=== PATIENT | female | born 1950 | race Caucasian/White ===

== ENCOUNTER → 2017-02-22 | Outpatient (CLI) | payer MEDICARE, BC ==
[2014-07-05 19:40] VITALS: BP 150/81
[~2017-02-22] MED LIST: LEVO137T3 PO; LOSA50TA2 PO; RABE20TA5 PO
--- NOTE | 2017-02-22 10:56 | RAD ---
EXAM: MAMMO CHILO SCREENING BILATERAL. HISTORY: Screening. COMPARISON: 02/21/2016 and 02/18/2015. FINDINGS: 2-D and 3-D tomosynthesis mammograms were obtained of both breasts in the CC and MLO projections. Computer-aided detection (CAD) was utilized. The breast parenchyma is primarily fatty (tissue density A). No dominant suspicious mass, suspicious microcalcifications, or architectural distortion is identified. IMPRESSION: No mammographic evidence of malignancy. BI-RADS CATEGORY: 1 NEGATIVE RECOMMENDED FOLLOW-UP: 12M 12 MONTH FOLLOW-UP PQRS compliance statement: Patient information was entered into a reminder system with a target due date for the next mammogram. Mammography is a sensitive method for finding small breast cancers, but it does not detect them all and is not a substitute for careful clinical examination. A negative mammogram does not negate a clinically suspicious finding and should not result in delay in biopsying a clinically suspicious abnormality. "Our facility is accredited by the [employer] Mammography Program."
== END | disposition home or self-care (01) ==
LOC: MAMMO 09:56
PROVIDERS: ATTEND Family Medicine
DX: Z12.31 Encounter for screening mammogram for malignant neoplasm of breast (principal)
CPT/HCPCS: 77063; G0202; 77067

== ENCOUNTER → 2019-10-19 | Outpatient (CLI) | payer MEDICARE, BC ==
[2014-07-05 19:40] VITALS: BP 150/81
[~2019-10-19] MED LIST changes: -LOSA50TA2 PO; +LOSA50TA86 PO; +RABE20TA18 PO; -RABE20TA5 PO
== END | disposition home or self-care (01) ==
LOC: LAB 08:17
PROVIDERS: ATTEND Specialist
DX: R82.71 Bacteriuria (principal)
CPT/HCPCS: 87086

== ENCOUNTER → 2019-10-27 | Outpatient (CLI) | payer MEDICARE, BC ==
[2014-07-05 19:40] VITALS: BP 150/81
== END | disposition home or self-care (01) ==
LOC: LAB 11:46
PROVIDERS: ATTEND Specialist
DX: R82.71 Bacteriuria (principal)
CPT/HCPCS: 87086

== ENCOUNTER → 2020-03-04 | Outpatient (CLI) | payer MEDICARE, BC ==
[2014-07-05 19:40] VITALS: BP 150/81
== END | disposition home or self-care (01) ==
LOC: LAB 07:45
PROVIDERS: ATTEND Specialist
DX: R82.71 Bacteriuria (principal)
CPT/HCPCS: 87086

== ENCOUNTER → 2020-03-14 | Outpatient (CLI) | payer MEDICARE, BC ==
[2014-07-05 19:40] VITALS: BP 150/81
== END ==
LOC: LAB 08:24
PROVIDERS: ATTEND Specialist
DX: N30.20 Other chronic cystitis without hematuria (principal)
CPT/HCPCS: 87086

== ENCOUNTER → 2020-03-18 | Outpatient (CLI) | payer MEDICARE, BC ==
[2014-07-05 19:40] VITALS: BP 150/81
--- NOTE | 2020-03-18 09:07 | RAD ---
CHEST PA LATERAL INDICATION: Preoperative, knee surgery. COMPARISON STUDY: 01/31/2010. FINDINGS: Lungs: Normal lung volume. No pulmonary mass or consolidation. The tracheobronchial tree and hilar structures are normal. Pleura: No pleural effusion or pneumothorax. Heart and Mediastinum: The cardiomediastinal silhouette is normal. Tortuosity of the thoracic aorta. Bones and Soft Tissues: Right convex thoracic curvature. Multilevel degenerative changes of the spine. IMPRESSION: No acute cardiopulmonary process. Electronically signed by: Pranav Mabry MD (03/18/2020 9:04 AM) [id number]
--- NOTE | 2020-03-18 09:09 | EKG ---
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
[2020-03-18 09:19] LABS: BASO # 0.1 x10^3/uL (0.0-0.2); BASO % 2 % (0-3); EOS # 0.4 x10^3/uL (0.0-0.7); EOS % 7 % (0-3); HEMATOCRIT 42.6 % (36.0-47.0); HEMOGLOBIN 14.4 g/dL (12.0-15.5); LYMPH # 1.6 x10^3/uL (1.0-4.8); LYMPH % 29 % (24-48); MEAN CORPUSCULAR HEMOGLOBIN 31 pg (25-35); MEAN CORPUSCULAR HGB CONC 34 g/dL (31-37); MEAN CORPUSCULAR VOLUME 90 fL (79-100); MONO # 0.5 x10^3/uL (0.0-1.1); MONO % 8 % (0-9); NEUT # 3.1 x10^3uL (1.8-7.7); NEUT % 54 % (31-73); PLATELET COUNT 262 x10^3/uL (140-400); RED BLOOD COUNT 4.72 x10^6/uL (3.50-5.40); RED CELL DISTRIBUTION WIDTH 12.9 % (11.5-14.5); WHITE BLOOD COUNT 5.8 x10^3/uL (4.0-11.0)
[2020-03-18 09:20] LABS: CALCIUM 9.5 mg/dL (8.5-10.1); CREATININE 0.7 mg/dL (0.6-1.0); GFR 82.7; POTASSIUM 3.7 mmol/L (3.5-5.1)
--- NOTE | 2020-03-20 16:14 | EKG ---
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
== END | disposition home or self-care (01) ==
LOC: RAD 08:18
PROVIDERS: ATTEND Physician Assistant
DX: Z01.818 Encounter for other preprocedural examination (principal); M47.814 Spondylosis without myelopathy or radiculopathy, thoracic region
CPT/HCPCS: 36415; 71046; 80048; 85025; 87641; 93005

== ENCOUNTER 2020-08-06 14:18 | Emergency (ER) | payer MEDICARE, BC ==
[~2020-08-06] VITALS: Ht 162.6 cm; Wt 98.2 kg
[2020-08-06] MEDS ORDERED: ACETAMINOPHEN 500 MG TABLET PO ONE (14:45)
[2020-08-06] MEDS ORDERED: IV RINGERS SOLUTION,LACTATED 1,000 ML IV SCH (14:45)
--- NOTE | 2020-08-06 14:53 | PHYS DOC ---
Past History Past Medical History: Arthritis, GERD, Hypertension, Hypothyroid Past Surgical History: Tonsillectomy, Tubal ligation, Other Alcohol Use: None Drug Use: None General Adult EDM: Chief Complaint: FATIGUE HPI: HPI: Patient is a 70-year-old female coming for multiple complaints including headache, urinary frequency, body aches, chills, chest "soreness" and, shortness of breath. She has had some nausea but no vomiting, denies diarrhea. Took ibuprofen this morning with improvement. Has past medical history of GERD, hypertension, hypothyroid. She has been compliant on medications Review of Systems: Review of Systems: Constitutional: Fever and chills, body aches Eyes: Denies change in visual acuity HENT: Denies nasal congestion or sore throat Respiratory: Shortness of breath Cardiovascular: Chest soreness denies peripheral extremity edema GI: Nausea without vomiting, denies diarrhea or abdominal pain : Denies dysuria but has had urinary frequency Musculoskeletal: Denies back pain or joint pain Integument: Denies rash Neurologic: Frontal headache without focal weakness or sensory changes Endocrine: Denies polyuria or polydipsia Lymphatic: Denies swollen glands Psychiatric: Denies depression or anxiety Heart Score: Risk Factors: Risk Factors: DM, Current or recent (<one month) smoker, HTN, HLP, family history of CAD, obesity. Risk Scores: Score 0 - 3: 2.5% MACE over next 6 weeks - Discharge Home Score 4 - 6: 20.3% MACE over next 6 weeks - Admit for Clinical Observation Score 7 - 10: 72.7% MACE over next 6 weeks - Early Invasive Strategies Allergies: Allergies: Allergies Coded Allergies Type Severity Reaction Last Updated Verified Sulfa (Sulfonamide Antibiotics) Allergy Severe Swelling 07/05/14 No Physical Exam: PE: Constitutional: Well developed, well nourished, no acute distress, non-toxic appearance. [] HENT: Normocephalic, atraumatic, bilateral external ears normal, oropharynx moist, no oral exudates, nose normal. [] Eyes: PERRLA, EOMI, conjunctiva normal, no discharge. [] Neck: Normal range of motion, no tenderness, supple, no stridor. [] Cardiovascular:Heart rate regular rhythm, no murmur [] Lungs & Thorax: Bilateral breath sounds clear to auscultation [] Abdomen: Bowel sounds normal, soft, no tenderness, no masses, no pulsatile masses. [] Skin: Warm, dry, no erythema, no rash. [] Back: No tenderness, no CVA tenderness. [] Extremities: No tenderness, no cyanosis, no clubbing, ROM intact, no edema. [] Neurologic: Alert and oriented X 3, normal motor function, normal sensory function, no focal deficits noted. [] Psychologic: Affect normal, judgement normal, mood normal. [] EKG: EKG: Sinus tachycardia, heart rate 102, no ectopy. [] Radiology/Procedures: Radiology/Procedures: CT ANGIO CHEST W ABD PEL W/ Indication: Hypoxia, frequent urination, nausea Technique: Postcontrast CT imaging was performed of the chest, abdomen, pelvis, multiplanar reconstruction images to include MIP reconstruction images are submitted. No oral contrast was given. One or more of the following individualized dose reduction techniques were utilized for this examination: 1. Automated exposure control 2. Adjustment of the mA and/or kV according to patient size 3. Use of iterative reconstruction technique. Comparison: August 01, 2009 CHEST: Findings: There is some motion degradation. No convincing pulmonary embolism is identified. There is prominent coronary calcification. There is somewhat ectatic tubular ascending thoracic aorta about 3.7 cm. No dissection flap is identified of the thoracic aorta. No significantly enlarged nodes identified of the chest. There is no pleural or pericardial fluid, pneumothorax, or significant infiltrate. There is [id number] reverse S-shaped curvature of the mid to superior thoracic spine. There is a small hiatal hernia. There is degenerative change of the glenohumeral articulations bilaterally. IMPRESSION: 1. No convincing pulmonary embolism is identified there is no significant infiltrate or pleural fluid. 2. There is coronary calcification. 3. There is reverse S shaped scoliotic curvature of the thoracic spine. 4. There is small hiatal hernia. Abdomen pelvis FINDINGS: There is very mild left hydronephrosis, 0.5 to 0.6 cm calculus in the proximal left ureter just beyond the ureteropelvic junction. There is mild enhancement of the delaney of the proximal left ureter as well as the left renal collecting system. Both kidneys enhance. There is no right hydronephrosis. There is a small focus of gas in the urinary bladder lumen. Accurate evaluation of bowel is limited without oral contrast. Bowel is not dilated. There is no free fluid or free air. There is mild colonic diverticulosis greatest of the sigmoid colon, no significant adjacent inflammatory change. Normal caliber appendix is visualized without adjacent inflammatory change. There is mild scattered plaque of the abdominal aorta and iliac arteries. Abdominal aortic caliber is within normal limits. Celiac and superior mesenteric arteries are patent. There is some calcified plaque near the orifice of the right renal artery without significant focal stenosis. No focal abnormality is identified of the spleen. There is a small accessory spleen. No focal abnormality is identified of the liver or the pancreas. There is elongation of the right lobe of the liver. There is no significant adrenal nodularity. Gallbladder is present without obvious intraluminal abnormality by CT. There is very mild grade 1 anterior spondylolisthesis of L4-5 and L5-S1, multilevel lumbar facet degenerative change. There is variable multilevel lumbar degenerative disc disease. There is mild reverse S shaped curvature of the lumbar spine. There is suspected moderate to severe spinal stenosis at L4-5. IMPRESSION: 1.There is mild left hydroureteronephrosis due to 0.5 to 0.6 cm calculus in the proximal left ureter just beyond the ureteropelvic junction. There is some enhancement of the delaney of the proximal left ureter as well as left left renal collecting system as may be seen with inflammatory change/ureteritis. 2. There is mild colonic diverticulosis. 3. Small focus of gas in the urinary bladder lumen could be due to recent instrumentation if corresponding history. If there has not been recent catheterization, infection with gas-forming organism is not excluded. Sequela of fistula seems less likely. 4. There is likely moderate to severe spinal stenosis at L4-5. [] Course & Med Decision Making: Course & Med Decision Making Pertinent Labs and Imaging studies reviewed. (See chart for details) Discussed with family extensively mine, will consult patient. Pending bed at end of shift. [] Dragon Disclaimer: Dragon Disclaimer: This electronic medical record was generated, in whole or in part, using a voice recognition dictation system. Departure Departure: Impression: Primary Impression: Renal calculus, left Additional Impression: Pyelonephritis Disposition: 05 TRANSFER OTHER Condition: STABLE Referrals: CONCHIS TURNER MD (PCP) MYESHA RODRIGUEZ MD Aug 06, 2020 14:53
--- NOTE | 2020-08-06 15:18 | RAD ---
Examination: PORTABLE CHEST 1V History: chest pain Comparison/Correlation: 03/18/2020 two-view chest x-ray exam Findings: Portable upright frontal view of the chest was obtained. Heart size is borderline. No acute pulmonary inflation. No pneumothorax. Pulmonary vasculature is within upper limits of normal. No focal infiltrates. No definite effusion. Spurring of the left humeral head is present. Impression: Borderline pulmonary vascular congestion is present but may be artifactual related to limited pulmonary inflation. No focal infiltrate. Electronically signed by: Nakul White MD (08/06/2020 3:15 PM) [id number]
[2020-08-06 15:55] LABS: BASO # 0.1 x10^3/uL (0.0-0.2); BASO % 1 % (0-3); EOS % 0 % (0-3); HEMATOCRIT 36.3 % (36.0-47.0); LYMPH # 0.5 x10^3/uL (1.0-4.8); LYMPH % 4 % (24-48); MEAN CORPUSCULAR HEMOGLOBIN 29 pg (25-35); MEAN CORPUSCULAR HGB CONC 33 g/dL (31-37); MEAN CORPUSCULAR VOLUME 89 fL (79-100); MONO # 0.6 x10^3/uL (0.0-1.1); MONO % 5 % (0-9); NEUT # 10.5 x10^3uL (1.8-7.7); NEUT % 90 % (31-73); PLATELET COUNT 248 x10^3/uL (140-400); RED BLOOD COUNT 4.09 x10^6/uL (3.50-5.40); RED CELL DISTRIBUTION WIDTH 13.9 % (11.5-14.5); WHITE BLOOD COUNT 11.6 x10^3/uL (4.0-11.0)
[2020-08-06 16:05] LABS: CALCIUM 9.7 mg/dL (8.5-10.1); GFR 54.8; POTASSIUM 3.3 mmol/L (3.5-5.1)
[2020-08-06 16:19] LABS: BILIRUBIN,URINE NEG (NEG); CLARITY,URINE HAZY; COLOR,URINE YELLOW; GLUCOSE,URINE NEG (NEG); NITRITE,URINE NEG (NEG); UROBILINOGEN,URINE 0.2 mg/dL (0.2 mg/dL)
[2020-08-06 16:20] LABS: BACTERIA,URINE 0 /HPF (0-FEW); WBC,URINE >40 /HPF (0-4)
[2020-08-06 16:22] LABS: INFLUENZA A PATIENT NEGATIVE (NEGATIVE); INFLUENZA B PATIENT NEGATIVE (NEGATIVE)
[2020-08-06] MEDS ORDERED: IOHEXOL 350 MG/ML 100 ML VIAL. IV ONE (17:00)
[2020-08-06] MEDS ORDERED: IV NORMAL SALINE 50ML 50 ML ONE (17:21)
[2020-08-06] MEDS ORDERED: cefTRIAXone SODIUM 1 GM VIAL ONE (17:21)
[2020-08-06] MEDS ORDERED: KETOROLAC 15 MG/ML VIAL. IVP ONE (17:45)
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
[2020-08-06 21:32] VITALS: BP 142/84
[2020-08-06] MEDS ORDERED: cloNIDine HCL 0.1 MG TABLET PO ONE (23:30)
--- NOTE | 2020-08-07 21:11 | EKG ---
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
--- NOTE | 2020-08-09 15:56 | NUR ---
IP: notified patient of COVID result.
== END 2020-08-07 00:01 | disposition short-term general hospital (02) ==
LOC: ER 14:18
DX: N12 Tubulo-interstitial nephritis, not specified as acute or chronic (principal); N13.2 Hydronephrosis with renal and ureteral calculous obstruction; M19.90 Unspecified osteoarthritis, unspecified site; K21.9 Gastro-esophageal reflux disease without esophagitis; I10 Essential (primary) hypertension; E03.9 Hypothyroidism, unspecified; Z20.828 Contact with and (suspected) exposure to other viral communicable diseases; Z88.2 Allergy status to sulfonamides
CPT/HCPCS: 36415; 71045; 71275; 74177; 80048; 81001; 83605; 83880; 84484; 85025; 85379; 85610; 85730; 87040; 87205; 87804; 93005; 96361; 96365; 96375; 96376; 99285; J0696; J1885; J3010; J7120; Q9967; U0003

== ENCOUNTER → 2020-10-09 | Outpatient (CLI) | payer MEDICARE, BC | LOC: LAB 14:10 | PROVIDERS: ATTEND Urology | DX: N39.41 Urge incontinence (principal) | CPT/HCPCS: 87086 ==

== ENCOUNTER → 2020-10-23 | Outpatient (CLI) | payer MEDICARE, BC | LOC: LAB 08:46 | PROVIDERS: ATTEND Urology | DX: N30.20 Other chronic cystitis without hematuria (principal) | CPT/HCPCS: 87086 ==

== ENCOUNTER → 2021-02-12 | Outpatient (CLI) | payer MEDICARE, BC ==
--- NOTE | 2021-02-12 10:19 | RAD ---
XR ABDOMEN 1V History: Reason: KIDNEY STONE / Spl. Instructions: / History: Technique: Supine views of the abdomen. Comparison: None. Findings: Imaged lung bases are unremarkable. Calcifications projecting over the pelvis, likely phleboliths. Minimal small bowel gas. Air and stool throughout the colon. Multilevel lumbar spondylosis with mild S-shaped curvature the thoracolumbar spine. Impression: 1. Calcifications projecting over the pelvis, likely phleboliths. If persistent clinical concern, CT can better evaluate. Electronically signed by: Roney Boo DO (02/12/2021 10:16 AM) [id number]
== END ==
LOC: DXRAD 09:43
PROVIDERS: ATTEND Specialist
DX: N20.1 Calculus of ureter (principal); N94.89 Other specified conditions associated with female genital organs and menstrual cycle; M47.816 Spondylosis without myelopathy or radiculopathy, lumbar region; M43.8X5 Other specified deforming dorsopathies, thoracolumbar region
CPT/HCPCS: 74018

== ENCOUNTER → 2021-02-14 | Outpatient (CLI) | payer MEDICARE, BC | LOC: LAB 10:21 | PROVIDERS: ATTEND Specialist | DX: R82.79 Other abnormal findings on microbiological examination of urine (principal) | CPT/HCPCS: 87086 ==

== ENCOUNTER → 2021-03-28 | Outpatient (CLI) | payer MEDICARE, BC | LOC: SPEC 09:18 | DX: N39.0 Urinary tract infection, site not specified (principal) | CPT/HCPCS: 87086 ==

== ENCOUNTER → 2021-04-22 | Outpatient (CLI) | payer MEDICARE, BC ==
--- NOTE | 2021-04-22 10:34 | RAD ---
XR KNEE 4 VIEWS WITH PATELLA_RT Clinical Indication: Reason: KNEE PAIN HX KNEE REPLACEMENT Comparison: None. Findings: There is knee arthroplasty. There is no acute fracture. Resurfacing of the patella. Patella in anatom ic position. No obvious joint effusion. There is lucency at the tip of the tibial stem measuring 2 mm . This lucency appears more postsurgical then due to loosening. Comparison to prior radiographs would be useful. No other lucency adjacent to the prosthesis is seen. There are small well-corticated ossi fic bodies lateral to the knee. No soft tissue swelling is identified. IMPRESSION: 1. Knee arthroplasty, alignment is anatomic. 2. No acute fracture. Electronically signed by: Arpan Yi MD (04/22/2021 10:32 AM) [email or web address]
== END ==
LOC: RAD 07:49
DX: M17.11 Unilateral primary osteoarthritis, right knee (principal)
CPT/HCPCS: 73564

== ENCOUNTER → 2021-04-28 | Outpatient (CLI) | payer MEDICARE, BC ==
[2021-04-28 08:46] LABS: BASO # 0.1 x10^3/uL (0.0-0.2); BASO % 2 % (0-3); EOS # 0.2 x10^3/uL (0.0-0.7); EOS % 6 % (0-3); LYMPH # 1.3 x10^3/uL (1.0-4.8); LYMPH % 33 % (24-48); MEAN CORPUSCULAR HEMOGLOBIN 30 pg (25-35); MEAN CORPUSCULAR HGB CONC 34 g/dL (31-37); MEAN CORPUSCULAR VOLUME 88 fL (79-100); MONO # 0.5 x10^3/uL (0.0-1.1); MONO % 12 % (0-9); NEUT # 1.9 x10^3uL (1.8-7.7); NEUT % 46 % (31-73); PLATELET COUNT 237 x10^3/uL (140-400); RED BLOOD COUNT 4.33 x10^6/uL (3.50-5.40); RED CELL DISTRIBUTION WIDTH 13.8 % (11.5-14.5)
[2021-04-28 08:54] LABS: BILIRUBIN,URINE NEG (NEG); CLARITY,URINE CLEAR; COLOR,URINE YELLOW; GLUCOSE,URINE NEG (NEG); NITRITE,URINE NEG (NEG); UROBILINOGEN,URINE 0.2 mg/dL (0.2 mg/dL)
[2021-04-28 08:55] LABS: BACTERIA,URINE 0 /HPF (0-FEW); RBC,URINE RARE /HPF (0-2); SQUAMOUS EPITHELIAL CELL,UR FEW /LPF; WBC,URINE RARE /HPF (0-4)
[2021-04-28 08:57] LABS: ALBUMIN 3.7 g/dL (3.4-5.0); ALBUMIN/GLOBULIN RATIO 1.1 (1.0-1.7); CALCIUM 9.4 mg/dL (8.5-10.1); CREATININE 0.7 mg/dL (0.6-1.0); GFR 82.5; POTASSIUM 4.1 mmol/L (3.5-5.1); TOTAL BILIRUBIN 0.4 mg/dL (0.2-1.0)
[2021-04-28 22:19] LABS: FREE T4 1.92 ng/dL (0.76-1.46); THYROID STIM HORMONE (TSH) 0.016 uIU/mL (0.358-3.740)
== END ==
LOC: LAB 07:42
PROVIDERS: ATTEND Internal Medicine
DX: M54.5 Low back pain (principal); G89.29 Other chronic pain; N20.0 Calculus of kidney; I25.10 Atherosclerotic heart disease of native coronary artery without angina pectoris; E03.4 Atrophy of thyroid (acquired); G47.33 Obstructive sleep apnea (adult) (pediatric); Z00.00 Encounter for general adult medical examination without abnormal findings
CPT/HCPCS: 36415; 80053; 80061; 81001; 84439; 84443; 85025

== ENCOUNTER 2021-05-29 11:08 | Emergency (ER) | payer OTHER, MEDICARE, BC ==
[~2021-05-29] VITALS: Ht 162.6 cm; Wt 96.0 kg
[2021-05-29 11:33] VITALS: BP 130/76
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
== END 2021-05-29 12:35 | disposition home or self-care (01) ==
LOC: ER 11:08
DX: M79.671 Pain in right foot (principal); K21.9 Gastro-esophageal reflux disease without esophagitis; I10 Essential (primary) hypertension; Z98.51 Tubal ligation status; V43.52XA Car driver injured in collision with other type car in traffic accident, initial encounter; Y93.89 Activity, other specified; Y92.488 Other paved roadways as the place of occurrence of the external cause; Y99.8 Other external cause status
CPT/HCPCS: 72072; 73630; 99284-25